=== PATIENT | male | born 1975 | race Caucasian/White ===

== ENCOUNTER 2018-08-17 22:55 | Emergency (ER) | payer OTHER ==
[~2018-08-17] VITALS: Ht 175.3 cm; Wt 118.8 kg
[2018-08-17 23:00] VITALS: Ht 175.3 cm; Wt 118.8 kg
[2018-08-18 02:00] VITALS: BP 131/78
== END 2018-08-18 02:00 | disposition home or self-care (01) ==
LOC: ED 22:55
DX: E11.649 Type 2 diabetes mellitus with hypoglycemia without coma (principal); R51 Headache; Z90.49 Acquired absence of other specified parts of digestive tract
CPT/HCPCS: 82962; J1885

== ENCOUNTER 2018-11-21 18:37 | Emergency (ER) | payer OTHER ==
[~2018-11-21] VITALS: Ht 175.3 cm; Wt 114.8 kg
[2018-11-21 19:32] VITALS: Ht 175.3 cm; Wt 114.8 kg
[2018-11-21 21:10] VITALS: BP 133/75
== END 2018-11-21 21:10 | disposition home or self-care (01) ==
LOC: ED 18:37
DX: S50.812A Abrasion of left forearm, initial encounter (principal); L30.8 Other specified dermatitis; L53.8 Other specified erythematous conditions; F20.0 Paranoid schizophrenia; E11.9 Type 2 diabetes mellitus without complications; Z90.49 Acquired absence of other specified parts of digestive tract; X58.XXXA Exposure to other specified factors, initial encounter; Y93.89 Activity, other specified; Y92.89 Other specified places as the place of occurrence of the external cause; Y99.9 Unspecified external cause status

== ENCOUNTER 2019-08-16 10:36 | Emergency (ER) | payer OTHER ==
[~2019-08-16] VITALS: Ht 175.3 cm; Wt 114.3 kg
[2019-08-16 10:48] VITALS: Ht 175.3 cm; Wt 114.3 kg
[2019-08-16 11:32] LABS: BASOPHIL % 0.3 % (0-2); PLATELET COUNT 201 x10^3mcL (130-400)
[2019-08-16 11:34] LABS: RED CELL DISTRIBUTION WIDTH 15.7 % (11.5-14.5)
[2019-08-16 11:53] LABS: ALBUMIN 3.8 g/dL (3.4-5.0); BILIRUBIN TOTAL 0.2 mg/dL (0.20-1.00); CALCIUM 8.9 mg/dL (8.5-10.1); CARBON DIOXIDE 24.8 mmol/L (21-32); CHLORIDE SERUM 95 mmol/L (98-107); CREATININE SERUM 1.1 mg/dL (0.7-1.3); GFR1 > 60 mL/min; GLUCOSE SERUM 89 mg/dL (74-106); SODIUM SERUM 129 mmol/L (136-145); TOTAL PROTEIN, SERUM 7.7 g/dL (6.4-8.2)
[2019-08-16 11:54] LABS: ALKALINE PHOSPHATASE 80 U/L (46-116); ALT/SGPT 20 U/L (16-63); AST/SGOT 13 U/L (15-37)
[2019-08-16 13:46] VITALS: BP 117/85
== END 2019-08-16 13:46 | disposition home or self-care (01) ==
LOC: ED 10:36
PROVIDERS: Emergency Medicine
DX: E87.1 Hypo-osmolality and hyponatremia (principal); E11.9 Type 2 diabetes mellitus without complications; Z90.49 Acquired absence of other specified parts of digestive tract
CPT/HCPCS: 36415; J7030